=== PATIENT | female | born 1985 | race Caucasian/White ===

== ENCOUNTER 2024-03-13 06:59 | Outpatient (RCR) | payer OTHER, SELFPAY | END 2024-04-06 11:57 | disposition home or self-care (01) | LOC: HO.OT 06:59 | PROVIDERS: PCP Nurse Practitioner Family; Visit Provider Physician Assistant | DX: S52.502D Unspecified fracture of the lower end of left radius, subsequent encounter for closed fracture with routine healing (principal) | CPT/HCPCS: 97110; 97165 ==